=== PATIENT | male | born 1960 | race Caucasian/White ===

== ENCOUNTER → 2018-01-13 01:45 | Outpatient (CLI) | payer BC, SELFPAY ==
[2018-01-13 11:12] LABS: Hemoglobin A1C 5.2 % (4.5-6.2)
[2018-01-13 11:16] LABS: BUN 18 mg/dL (7-18); CREATININE 1.01 mg/dL (0.70-1.30); Calcium 8.6 mg/dL (8.5-10.1); Chloride 104 mmol/L (98-107); Glucose 78 mg/dL (70-100); Potassium 4.4 mmol/L (3.5-5.1); Sodium 139 mmol/L (136-145)
== END ==
PROVIDERS: PCP Family Medicine; Visit Provider Family Medicine
DX: Z00.00 Encounter for general adult medical examination without abnormal findings (principal); Z83.3 Family history of diabetes mellitus; N40.0 Benign prostatic hyperplasia without lower urinary tract symptoms; Z13.1 Encounter for screening for diabetes mellitus
CPT/HCPCS: 36415; 80048; 83036; 84154

== ENCOUNTER 2020-04-24 02:01 | Outpatient (CLI) | payer BC, SELFPAY ==
[2020-04-26 01:24] LABS: COVID-19 RT-PCR Result NEGATIVE (Negative)
== END 2020-04-24 02:21 ==
PROVIDERS: PCP Nurse Practitioner; Visit Provider Podiatrist
DX: Z11.59 Encounter for screening for other viral diseases (principal); Z01.818 Encounter for other preprocedural examination
CPT/HCPCS: U0003

== ENCOUNTER 2020-04-27 07:17 | Day surgery (SDC) | payer BC, SELFPAY ==
--- NOTE | 2020-04-27 07:20 | W.PM.HP.N ---
Date of service: 04/27/20 Time of Service: 07:20 History of Present Illness History of Present Illness Chief Complaint: Digiti quinti varus deformities bilaterally Narrative: 60-year-old male with chronic pain associated with fifth digit hammertoe deformities and soft corn formations. This is been a multiyear problem for him is reached the point he is having difficulty wearing shoe gear getting through his workday. In spite of nonoperative treatments pain persists and he is opting for surgical intervention. PFSH Medical History Back pain BPH (benign prostatic hyperplasia) [place] (hard of hearing) Otitis externa Inactive Otitis media Inactive Surgical History Colonoscopy - MAC (01/30/17) History of vasectomy Hx of colonoscopy Family History Mother Diabetes Stage 4 chronic kidney disease Father , 70 Essential hypertension Heart disease Sister No problems noted. Brother Essential hypertension Depression Paternal Grandfather No problems noted. Sister No problems noted. Brother Depression Son No problems noted. Son No problems noted. Daughter No problems noted. Son No problems noted. Social History Smoking/Tobacco Use Status: Never Smoking risk assessment performed?: Yes Alcohol Intake: current Alcohol Intake frequency: a few times a week Alcohol type: beer, wine and hard liquor Drug use: Never Substance use type: does not use Caregiver/Support person: No Household members: spouse and children Housing: house Communication Needs: Hard of Hearing Do you need help understanding health information?: Rarely Pets and animals: Yes Pets and animals: cat(s) and dog(s) Sexually active: Yes Do you think of yourself as: straight/heterosexual Current gender identity: male What is your relationship status?: How often do you talk on the phone with friends or family?: three or more times per week How often do you get together with friends or relatives?: three or more times per week How often do you attend christianity or samaritan services?: decline to answer Do you belong to any clubs or organized social groups?: yes Panel score (0-1 are the most socially isolated patients): 3 What type of physical activity do you participate in: walking Duration: > 90 minutes/day Frequency: 5-6 times per week Milka/Zoroastrianism: No preference Special milka needs: No Seatbelt use: always Helmet use: Yes Helmet use: sometimes Drive intox 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 Thanks today for this surgical repair digiti quinti varus deformities bilaterally. Head is normocephalic Eyes PERRLA Hearing is diminished but adequate Uvula was midline airway looks assessable Heart had regular rate and rhythm I detected no gallops rubs or murmurs Lung longo are clear Abdomen was soft bowel sounds x4 Peripheral pulses are manually palpable at the ankle 2/4 bilaterally. No peripheral edema. Capillary fill is under 3 seconds all toes. Muscle groups 5 out of 5 bilaterally Skeletal exam is remarkable for bilateral digiti quinti varus deformities with irritation seen dorsal laterally at the PIPJ as well as soft corn formations between the fourth and fifth digits. The corn formations are locally irritated without signs of infection. Neurologically he is grossly intact toes are downgoing no deficits noted Impressions: Digiti quinti varus deformities bilaterally with soft corn formations as above Plan: Jeanie is being brought to the OR for surgical repair of the above deformities. He understands risk and complications pertaining the surgery including pain, scarring, infection, shortening of the fifth toes with potential floating. He understands the potential for revisional procedures. All questions have been answered in detail. There are no promises made to final outcome of surgery. Informed consent has been obtained. COVID-19 Screening Have you, or household traveled for leisure in last 14 days?: No Had IN PERSON contact w/suspected or confirmed C-19 person: No
[2020-04-27 07:30] VITALS: BP 123/80; PULSE 62; RESP 16; TEMP 36.7; O2SAT 100
[2020-04-27] MEDS: Lactated Ringers 1,000 ML 80 ML IV (08:02)
[2020-04-27] MEDS: ceFAZolin 1 GM/50 ML BAG IVPB (09:32)
[2020-04-27] MEDS: Bupivacaine 0.5% Pres-Free 30 ML VIAL (09:42)
[2020-04-27] MEDS: Lidocaine 1% Multi-Dose 50 ML VIAL (09:42)
[2020-04-27] MEDS: Dexamethasone 4 MG/ML VIAL (10:08)
--- NOTE | 2020-04-27 10:19 | PDOC.DSDIS_ITS ---
Discharge Plan Disposition Patient Disposition: HOME Condition: Good Discharge Details Attending Provider: Jesus Garza Primary Care Provider: Christy Benjamin Home Meds and New Rx's Prescriptions: New hydrocodone-acetaminophen [[place]] 5-325 mg tablet 1 tab PO Q6H PRN (Reason: pain) Qty: 9 RF: 0 No Action atorvastatin 20 mg tablet 20 mg PO QPM Qty: 90 RF: 3 ofloxacin 0.3 % drops 2 drp ophthalmic (eye) QID Qty: 5 RF: 0 ibuprofen 200 mg Tablet 400 mg PO DAILY RF: 0 Discharge Instructions Activity:: Elevate Remove Dressings/Wound Care:: Do Not Remove Shower/Bathe:: Cover Diet:: Normal Diet Discharge Orders Discharge Orders: Discharge Order (Routine); Ordered 04/27/20 Ordered By: Jesus Garza DS: Diagnosis Discharge Diagnosis (1) Marybeth, bilateral: Status: Acute
--- NOTE | 2020-04-27 10:33 | ROE_ITS ---
Date of service: 04/27/20 Time of Service: 10:33 Operative Note Operative Note DATE OF PROCEDURE: 04/27/20 PRE-OP DIAGNOSIS: Hammertoe fifth digit bilaterally PROCEDURE: Arthroplasty fifth digit bilaterally SURGEON: Jesus Garza ANESTHESIA: MAC ESTIMATED BLOOD LOSS: 1 PATHOLOGY: none sent COMPLICATIONS: None Patient was transported to: same day Patient's condition: stable Procedure Description: Charlie was brought to the operative suite placed in the supine position with both feet were prepped and draped in the usual sterile podiatric fashion. Timeout was performed per protocol. Both fifth toes were anesthetized with a 50: 50 mixture 1% lidocaine plain, 0.5% Marcaine plain utilizing a total of 18 cc. Attention was directed to the right foot. Foot was exsanguinated ankle tourniquet inflated to 250 mmHg. Attention was directed to the fifth toe with 2 converging semielliptical incisions were placed scented dorsally over the fifth PIPJ. The skin wedge was excised. Soft tissue diss ection was performed. A transverse tenotomy capsulotomy was then performed at the PIPJ level. The tendon was reflected proximally and distally. The head of the fifth proximal phalanx was delivered into the wound. Hypertrophy and mild degenerative change of the articular surfaces noted. Double-action bone cutting forceps the proximal phalangeal head was resected slightly angulated so as to remove a little more bone medially. All rough and bony edges were rasped smooth. Copious irrigation was performed. Finger palpation led me to believe that there was sufficient bony resection and I decided not to remove any bone from the lateral side of the fourth MPJ. The extensor tendon was shortened dorsally and the tendon repaired end-to-end with 3-0 Vicryl. The skin was then coapted with simple interrupted suture of 4-0 nylon. 2 mg of dexamethasone phosphate was infused deeply into the toe Xeroform gauze fluff compression dressings were applied. Tourniquet was released to 12 minutes with vascularity returning immediately to all toes. Attention was now directed to the left foot where the identical procedure was performed with the only change being the tourniquet time was 14 minutes. Charlie left the OR with vital signs stable vascular status intact. Sharp and sponge counts were correct. He was transported to day surgery and I will follow him up in the office next week.
[2020-04-27 10:47] VITALS: BP 115/78; PULSE 54; RESP 16; TEMP 36.4; O2SAT 99
== END 2020-04-27 11:15 | disposition home or self-care (01) ==
PROVIDERS: PCP Nurse Practitioner; Visit Provider Podiatrist
PROC: (CPT 28285; principal; 2020-04-27 08:45)
DX: M20.41 Other hammer toe(s) (acquired), right foot (principal); M20.42 Other hammer toe(s) (acquired), left foot
CPT/HCPCS: 28285 ×2; 99223; J0690; J1100; J1885; J2001; J3010

== ENCOUNTER 2020-07-20 01:53 | Outpatient (CLI) | payer BC, SELFPAY ==
[2020-07-20 10:07] LABS: Calculated LDL 162 mg/dL (<100); Cholesterol 244 mg/dL (<200); HDL Cholesterol 68 mg/dL (40-60); Triglyceride 70 mg/dL (<150)
== END 2020-07-20 01:54 | disposition home or self-care (01) ==
LOC: LBO 01:53
PROVIDERS: PCP Nurse Practitioner; Visit Provider Nurse Practitioner
DX: E78.5 Hyperlipidemia, unspecified (principal)
CPT/HCPCS: 36415; 80061

== ENCOUNTER 2021-02-11 08:16 | Outpatient (CLI) | payer BC, SELFPAY ==
[2021-02-11 12:37] LABS: Hemoglobin A1C 5.3 % (<5.7)
[2021-02-11 12:45] LABS: Calculated LDL 79 mg/dL (<100); Cholesterol 153 mg/dL (<200); HDL Cholesterol 66 mg/dL (40-60); Triglyceride 43 mg/dL (<150)
== END 2021-02-11 08:17 | disposition home or self-care (01) ==
LOC: LOS 08:19
PROVIDERS: PCP Nurse Practitioner; Visit Provider Nurse Practitioner
DX: E78.5 Hyperlipidemia, unspecified (principal); Z13.1 Encounter for screening for diabetes mellitus
CPT/HCPCS: 36415; 80061; 83036

== ENCOUNTER 2022-05-22 12:34 | Outpatient (CLI) | payer BC, SELFPAY ==
[2022-05-22 12:42] LABS: ALT 31 U/L (16-63); AST 26 U/L (15-37); Albumin 3.6 g/dL (3.4-5.0); Alkaline Phosphatase 86 U/L (46-116); Anion Gap 7.6 mmol/L (3-11); BUN 29 mg/dL (7-18); Bilirubin, Total 0.6 mg/dL (0.2-1.0); CO2 29.4 mmol/L (21.0-32.0); Calcium 8.9 mg/dL (8.5-10.1); Chloride 103 mmol/L (98-107); Estimated GFR 84.05 (mL/min/1.73m2); Glucose 71 mg/dL (74-106); Potassium 3.9 mmol/L (3.5-5.1); Sodium 140 mmol/L (136-145)
[2022-05-23 08:07] LABS: PSA, Screening 0.7 ng/mL (<=4.5)
== END 2022-05-22 12:35 | disposition home or self-care (01) ==
LOC: LOS 12:36
PROVIDERS: PCP Nurse Practitioner Family; Visit Provider Nurse Practitioner Family
DX: N40.0 Benign prostatic hyperplasia without lower urinary tract symptoms (principal); E78.5 Hyperlipidemia, unspecified; Z12.5 Encounter for screening for malignant neoplasm of prostate
CPT/HCPCS: 36415; 80053; 84153

== ENCOUNTER 2022-08-22 01:16 | Outpatient (CLI) | payer BC, SELFPAY ==
--- NOTE | 2022-08-22 09:47 | DI.RAD_ITS ---
Exam(s) XR HUMERUS LT EXAM: XR HUMERUS LT CLINICAL HISTORY: LT UPPER ARM pain, lump at proximal bicep,M79.622. TECHNIQUE: 2D digital imaging was performed. COMPARISON: No exams were available for comparison FINDINGS: BONES: No acute fracture is present. No bony destructive lesion is seen. Visualized portion of elbow and shoulder joints are unremarkable. Mild degenerative changes at the glenoid. SOFT TISSUE: Normal. No mass or calcification visible. IMPRESSION: Unremarkable radiographs of the left humerus. DATA REPOSITORY: RADIATION DOSE DELIVERED:
== END 2022-08-22 01:36 ==
LOC: DI 01:16
PROVIDERS: PCP Nurse Practitioner Family; Visit Provider Nurse Practitioner Family
DX: M79.622 Pain in left upper arm (principal); R22.32 Localized swelling, mass and lump, left upper limb
CPT/HCPCS: 73060

== ENCOUNTER 2022-10-09 10:09 | Outpatient (CLI) | payer BC, SELFPAY ==
--- NOTE | 2022-10-09 08:30 | DI.RAD_ITS ---
Exam(s) XR LUMBAR SPINE COMPLETE EXAM: XR LUMBAR SPINE COMPLETE CLINICAL HISTORY: low back and hip pain, M54.50, M25.551, M25.552. TECHNIQUE: 2D digital imaging was performed of the lumbar spine. Five images were obtained. AP, la teral, right oblique, left oblique and L5-S1 spot views were obtained. COMPARISON: No exams were available for comparison FINDINGS: BONES: No fracture or destructive lesion. Small endplate osteophytes are seen at several levels of th e lumbar spine. Degenerative changes of the facets at L5-S1 is noted. DISKS: There is narrowing at T12-L1 and L1-L2. ALIGNMENT: There is 2-3 mm retrolisthesis of L1 on L2. No spondylolysis or spondylolisthesis. SOFT TISSUE: Atherosclerosis is present. IMPRESSION: Mild degenerative changes are seen in the lumbar spine as described above. DATA REPOSITORY: RADIATION DOSE DELIVERED:
--- NOTE | 2022-10-09 08:31 | DI.RAD_ITS ---
Exam(s) XR HIP PELVIS ADULT BL EXAM: XR HIP PELVIS ADULT BL CLINICAL HISTORY: bilateral hip pain, M25.551. TECHNIQUE: 2D digital imaging was performed of the pelvis and bilateral hips. Three images were obt ained. AP pelvis and lateral views of both hips were obtained. COMPARISON: No exams were available for comparison FINDINGS: BONES: No acute fracture is present. No bony destructive lesion is seen. JOINTS: No dislocation present. Marked degenerative changes are seen in the hips bilaterally characte rized by joint space narrowing and acetabular spurring. Subchondral sclerosis and subchondral cysts are also seen in the hips superiorly, right greater than left. SOFT TISSUE: Normal. IMPRESSION: Marked degenerative changes of the hips bilaterally. DATA REPOSITORY: RADIATION DOSE DELIVERED:
== END 2022-10-09 10:29 ==
LOC: DI 10:09
PROVIDERS: PCP Nurse Practitioner Family; Visit Provider Nurse Practitioner Family
DX: M17.0 Bilateral primary osteoarthritis of knee; M51.36 Other intervertebral disc degeneration, lumbar region
CPT/HCPCS: 73521; 72110

== ENCOUNTER 2023-04-13 22:01 | Outpatient (REF) | payer MEDICARE, BC, SELFPAY | END 2023-04-13 22:02 | disposition home or self-care (01) | LOC: NCHCN 22:01 | PROVIDERS: PCP Nurse Practitioner Family; Visit Provider Physician Assistant | DX: J02.9 Acute pharyngitis, unspecified (principal) | CPT/HCPCS: 87077; 87070 ==

== ENCOUNTER 2023-05-29 01:42 | Outpatient (CLI) | payer MEDICARE, BC, SELFPAY ==
[2023-05-29 12:13] LABS: Abs Immature Grans 0.02 10^3/uL (0.0-0.06); Absolute Basophil Count 0.02 10^3/uL (0.0-0.2); Absolute Lymphocyte Count 1.45 10^3/uL (1.2-3.4); Absolute Monocyte Count 0.45 10^3/uL (0.1-0.8); Absolute Neutrophil Count 2.82 10^3/uL (1.2-6.7); Basophils % 0.4; Eosinophils % 2.1; HCT 41.1 % (40.0-50.0); HGB 13.7 g/dL (13.5-17.5); Immature Grans % 0.4; Lymphocytes % 29.8; MCH 29.1 pg (27.0-33.0); MCHC 33.3 % (32.0-36.0); MCV 87 fL (80-95); MPV 9.1 fL (8.0-11.0); Monocytes % 9.3; Platelet Count 230 10^3/uL (130-400); RBC 4.71 10^6/uL (4.36-5.78); RDW 12.5 % (11.8-14.1); RDW-SD 40.3 fL; WBC 4.86 10^3/uL (4.4-10.8)
[2023-05-29 12:34] LABS: Anion Gap 9.4 mmol/L (3-11); BUN 17 mg/dL (7-18); CO2 26.6 mmol/L (21.0-32.0); Calcium 8.9 mg/dL (8.5-10.1); Calculated LDL 82 mg/dL (<100); Chloride 104 mmol/L (98-107); Cholesterol 160 mg/dL (<200); Estimated GFR 83.52 (mL/min/1.73m2); Glucose 94 mg/dL (74-106); HDL Cholesterol 67 mg/dL (40-60); Potassium 4.1 mmol/L (3.5-5.1); Sodium 140 mmol/L (136-145); TSH (W/Ref FT4) 1.99 uIU/mL (0.36-3.74); Triglyceride 57 mg/dL (<150)
[2023-05-29 19:09] LABS: PSA, Screening 0.6 ng/mL (<=4.5)
[2023-05-29 19:54] LABS: Hepatitis C Ab w Rflx HCV PCR Negative (Negative)
== END 2023-05-29 01:43 | disposition home or self-care (01) ==
LOC: LOS 01:43
PROVIDERS: PCP Nurse Practitioner Family; Visit Provider Nurse Practitioner Family
DX: Z00.00 Encounter for general adult medical examination without abnormal findings (principal); Z12.5 Encounter for screening for malignant neoplasm of prostate
CPT/HCPCS: 36415; 80048; 80061; 84153; 86803; 84443; 85025

== ENCOUNTER 2023-12-02 19:48 | Outpatient (REF) | payer BC, MEDICARE, SELFPAY | END 2023-12-02 19:49 | disposition home or self-care (01) | LOC: LBN 19:48 | PROVIDERS: PCP Nurse Practitioner Family; Visit Provider Nurse Practitioner Family | DX: L98.9 Disorder of the skin and subcutaneous tissue, unspecified (principal) | CPT/HCPCS: 87070; 87205 ==

== ENCOUNTER 2024-01-13 09:01 | Outpatient (CLI) | payer BC, MEDICARE, SELFPAY ==
[2024-01-13 12:41] LABS: Abs Immature Grans 0.02 10^3/uL (0.0-0.06); Absolute Basophil Count 0.01 10^3/uL (0.0-0.2); Absolute Eosinophil Count 0.07 10^3/uL (0.0-0.7); Absolute Lymphocyte Count 1.31 10^3/uL (1.2-3.4); Absolute Monocyte Count 0.46 10^3/uL (0.1-0.8); Absolute Neutrophil Count 4.36 10^3/uL (1.2-6.7); Basophils % 0.2 %; Eosinophils % 1.1 %; HCT 44.4 % (40.0-50.0); HGB 15.1 g/dL (13.5-17.5); Immature Grans % 0.3 %; MCH 30.3 pg (27.0-33.0); MCV 89 fL (80-95); MPV 9.2 fL (8.0-11.0); Monocytes % 7.4 %; Platelet Count 184 10^3/uL (130-400); RBC 4.99 10^6/uL (4.36-5.78); RDW 12.3 % (11.8-14.1); RDW-SD 39.8 fL; WBC 6.23 10^3/uL (4.4-10.8)
[2024-01-13 13:01] LABS: ALT 34 U/L (16-63); AST 24 U/L (15-37); Albumin 3.7 g/dL (3.4-5.0); Alkaline Phosphatase 84 U/L (46-116); Anion Gap 8.2 mmol/L (3-11); BUN 21 mg/dL (7-18); Bilirubin, Total 0.56 mg/dL (0.2-1.0); CO2 27.8 mmol/L (21.0-32.0); Chloride 105 mmol/L (98-107); Estimated GFR 83.52 (mL/min/1.73m2); Glucose 97 mg/dL (74-106); Hemoglobin A1C 5.3 % (<5.7); Sodium 141 mmol/L (136-145); TSH (W/Ref FT4) 1.91 uIU/mL (0.36-3.74); Total Protein 6.9 g/dL (6.4-8.2)
[2024-01-13 19:24] LABS: Hepatitis C Ab w Rflx HCV PCR Negative (Negative)
[2024-01-13 19:39] LABS: HBs Antibody, Quant 119.2 mIU/mL (See Note); Hep B Surface Ab Positive (See Note); Hepatitis B Core Antibody Negative (Negative); Hepatitis B Surface Antigen Negative (Negative)
[2024-01-13 19:42] LABS: HIV-1/2 Ag & Ab Screen Negative (Negative)
[2024-01-17 16:52] LABS: Testosterone, Total 405 ng/dL (240-950)
== END 2024-01-13 09:02 | disposition home or self-care (01) ==
LOC: LOS 09:01
PROVIDERS: PCP Nurse Practitioner Family; Referring Provider Nurse Practitioner Family; Visit Provider Nurse Practitioner Family
DX: R05.9 Cough, unspecified (principal); Z11.59 Encounter for screening for other viral diseases; E78.5 Hyperlipidemia, unspecified; R53.83 Other fatigue; R68.82 Decreased libido; Z11.4 Encounter for screening for human immunodeficiency virus [HIV]
CPT/HCPCS: 36415; 80053; 84403; 86704; 86706; 86803; 87340; 87389; 83036; 84443; 85025

== ENCOUNTER 2024-01-13 11:16 | Outpatient (CLI) | payer BC, MEDICARE, SELFPAY ==
--- NOTE | 2024-01-13 11:00 | DI.RAD_ITS ---
Exam(s) XR CHEST 2V PA LATERAL EXAM: XR CHEST 2V PA LATERAL CLINICAL HISTORY: cough,r05.9 TECHNIQUE: 2D digital imaging was performed. Two views. COMPARISON: CT NECK AND CHEST WITH CONTRAST from 10/08/2016 FINDINGS: HEART: Normal size. Aorta: Not dilated. PULMONARY VASCULATURE: Normal. MEDIASTINUM: Unremarkable. LUNGS: Clear. PLEURAL SPACE: No pleural effusion or pneumothorax. BONE:Unremarkable for age. SOFT TISSUES: Unremarkable. IMPRESSION: No acute abnormality. DATA REPOSITORY: RADIATION DOSE DELIVERED:
== END 2024-01-13 11:36 ==
LOC: DI 11:17
PROVIDERS: PCP Nurse Practitioner Family; Visit Provider Nurse Practitioner Family
DX: R05.9 Cough, unspecified (principal)
CPT/HCPCS: 71046

== ENCOUNTER 2024-11-23 02:49 | Outpatient (CLI) | payer MEDICARE, BC, SELFPAY ==
--- NOTE | 2024-11-23 10:51 | DI.RAD_ITS ---
Exam(s) XR LUMBAR SPINE COMPLETE XR SACROILIAC JOINTS EXAM: XR LUMBAR SPINE COMPLETE CLINICAL HISTORY: lower back pain, left,m54.50. TECHNIQUE: 2D digital imaging was performed. Five views the lumbar spine. Three views of the SI joints COMPARISON: CR XR LUMBAR SPINE COMPLETE from 10/09/2022 CR XR SACROILIAC JOINTS from 11/23/2024 FINDINGS: SI joints: No significant spurring. No bony erosions. BONES: No fracture or destructive lesion. Vertebral body heights are maintained. There are bilateral hip prostheses. There are facet degenerative changes at L4-5 and L5-S1. DISKS: Moderate narrowing of the L1-2 and L2-3 disc spaces eccentric toward the left, creating mild scoliosis. Findings appear to have worsened since the previous exam. The remaining intervertebral disc spaces are maintained. ALIGNMENT: Mild degenerative dextroscoliosis. SOFT TISSUE: Normal. IMPRESSION: Moderate degenerative disc changes at L 1 2 and L2-3. Facet degenerative changes greatest at L4-5. The SI joints appear normal. DATA REPOSITORY: RADIATION DOSE DELIVERED:
== END 2024-11-23 03:09 ==
LOC: DI 02:49
PROVIDERS: PCP Nurse Practitioner Family; Visit Provider Physician Assistant
DX: M51.360 Other intervertebral disc degeneration, lumbar region with discogenic back pain only (principal)
CPT/HCPCS: 72110; 72202

== ENCOUNTER 2025-01-03 16:12 | Outpatient (CLI) | payer MEDICARE, BC, SELFPAY ==
--- NOTE | 2025-01-03 12:56 | DI.RAD_ITS ---
Exam(s) XR HIP LT COMPLETE AP PELVIS EXAM: XR HIP LT COMPLETE AP PELVIS CLINICAL HISTORY: left hip pain S/P lt hip replacement M25.522 Z96.642. TECHNIQUE: 2D digital imaging was performed. Two views. COMPARISON: CR XR HIP PELVIS ADULT BL from 10/09/2022 FINDINGS: BONES: No acute fracture is present. No bony destructive lesion is seen. No abnormal lucencies surrounding the prostheses. JOINTS: No dislocation present. The SI joints and pubic symphysis are intact. Bilateral hip prostheses have been placed since the previous exam. The alignment appears satisfactory. SOFT TISSUE: Normal. IMPRESSION: Unremarkable bilateral hip prostheses. DATA REPOSITORY: RADIATION DOSE DELIVERED:
== END 2025-01-03 16:32 ==
LOC: DI 16:12
PROVIDERS: PCP Nurse Practitioner Family; Visit Provider Nurse Practitioner Family
DX: M25.552 Pain in left hip (principal); Z96.642 Presence of left artificial hip joint
CPT/HCPCS: 73502

== ENCOUNTER 2025-01-04 09:46 | Emergency (ER) | payer MEDICARE, BC, SELFPAY ==
[2025-01-04] VITALS (28 sets, daily range): BP systolic 136–158; BP diastolic 80–99; PULSE 53–79; RESP 11–20; TEMP 36.8; O2SAT 92–98
--- NOTE | 2025-01-04 09:45 | RT.EKG_ITS ---
APPROVED REPORT Exam: Resting ECG Reason for Exam: chest pain Patient Location: E HR:66 bpm ECG Measurements Heart Rate 66 AXIS MS 132 P 22 QRSd 90 QRS 5 QT 360 T 57 QTc 378 Conclusion Sinus rhythm...normal P axis, V-rate 60- 99
--- NOTE | 2025-01-04 10:02 | ED.GENADUL_ITS ---
Discharge Plan Disposition Patient Disposition: Home Condition: Stable Discharge Details Clinical Impression: Chest pain Primary Care Provider: Shanique Summers ED Provider: Nabil Shabazz Home Meds and New Rx's Prescriptions: Continued prednisone 20 mg tablet 10 - 60 mg PO DAILY Qty: 30 0RF Rx Instructions: Take 3 tablets for 5 days then 2 tablets for 4 days then 1 tablet for 3 days and half a tablet for 3 days tramadol 50 mg tablet 50 mg PO BID PRN (Reason: pain) Qty: 30 0RF atorvastatin 20 mg tablet 20 mg PO QPM Qty: 90 3RF tamsulosin [Flomax] 0.4 mg capsule 0.8 mg PO QHS Qty: 180 3RF Discharge Instructions Additional Instructions: Your heart enzymes and x-ray did not show concerning findings at this time. Your blood work was unremarkable other than your white blood cell count was elevated which can be due to the prednisone that you are on. Follow-up with your primary care provider. If you feel significantly more ill, have sustained fevers over 101 or severe worsening chest pain return to the emergency department for reevaluation. HPI General Mode of arrival: ambulatory . Date/Time Provider Initiated Documentation: 01/04/25 09:47 . Limitations to Documentation: no limitations . Information obtained by: patient . History of Present Illness 64 year old M presents to the emergency department with the chief complaint of chest pain, described as moderate, Quality is described as stabbing, Patient started experiencing this hour(s) (1) and it has been now resolved. No relieving factors improve symptom(s), No exacerbating factors reported . Patient notes no other symptoms.. Patient did receive the following treatments prior to arrival, none Related Data Home Medications ?Medication ?Instructions ?Recorded ?Confirmed atorvastatin 20 mg tablet 20 mg PO QPM #90 tabs 01/04/25 tamsulosin 0.4 mg capsule (Flomax) 0.8 mg (2 x 0.4 mg) PO QHS #180 08/15/24 01/04/25 caps prednisone 20 mg tablet 10 - 60 mg (0.5 - 3 x 20 mg) PO 12/30/24 01/04/25 DAILY #30 tabs tramadol 50 mg tablet 50 mg PO BID PRN pain #30 ta bs 12/30/24 01/04/25 Previous Rx's ?Medication ?Instructions ?Recorded atorvastatin 20 mg tablet 20 mg PO QPM #90 tabs tamsulosin 0.4 mg capsule (Flomax) 0.8 mg (2 x 0.4 mg) PO QHS #180 08/15/24 caps prednisone 20 mg tablet 10 - 60 mg (0.5 - 3 x 20 mg) PO 12/30/24 DAILY #30 tabs tramadol 50 mg tablet 50 mg PO BID PRN pain #30 ta bs 12/30/24 Allergies Allergy/AdvReac Type Severity Reaction Status Date / Time No Known Allergies Allergy Verified 01/04/25 10:04 Review of Systems All systems reviewed & are unremarkable except as noted in HPI and below Constitutional Constitutional: Denies chills, Denies fever(s) and Denies weakness Cardiovascular Cardiovascular: Reports chest pain and Denies dyspnea Respiratory Respiratory: Denies cough and Denies dyspnea Gastrointestinal Gastrointestinal: Denies abdominal pain, Denies nausea and Denies vomiting Neurologic Neurologic: Denies weakness Exam Const General: no acute distress Orientation: alert HENMT Head: normal to inspection Ears: external ears normal General nose exam: external nose normal Mouth: moist mucous membranes Eyes General: appearance normal, both eyes and all related structures Neck Neck: normal visual inspection Chest Chest: normal inspection of the chest Resp Effort & Inspection: normal respiratory effort and able to speak in complete sentences Auscultation: clear to auscultation bilaterally Cardio Jugular venous pressure: no JVD Rate: regular rate Heart Sounds: no murmurs GI Palpation: soft and nontender Skin General skin exam: no rashes or lesions noted Neuro General: patient alert and patient oriented x3 Extrem General: normal to inspection Psych Mental Status: mental status grossly normal Medical Decision Making 64-year-old male patient with having issues with lower back pain for a month and states he 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 He denies any diaphoresis, nausea vomiting, abdominal pain. No fevers or chills. He is well-appearing speaking full sentences. He has no rashes of the chest wall. He has clear lung sounds, no JVD, no abdominal tenderness, no leg swelling or calf tenderness. He has no tachycardia or hypoxia. I suspect this could be related to anxiety or chest wall pain but will obtain CBC, CMP and troponins and also obtain a D-dimer more for evaluation for possible dissection rather than PE as he has no evidence of DVT on exam and no hypoxia or tachycardia. Labs show a white count of 17 but he has also been on prednisone which is likely the cause for this leukocytosis. No fevers. Troponins negative and a chest x- ray is negative and D-dimer is less than 500. He is resting in no distress on reassessment. Given reassuring workup I feel he is stable for discharge and can follow-up with his PCP, return precautions given Differential Diagnosis Differential Diagnosis: Anxiety, chest wall pain, pleurisy, NSTEMI Lab Data Lab results reviewed: Yes I reviewed the patient's lab results. ECG Data Attestation: I personally reviewed and interpreted this ECG (s) as follows: Prior ECG tracings: not available for review Interpretation: Sinus rhythm, rate of 66, WA 132, no STEMI Quality:SDOH Health Related Social Needs: Health related social needs risk of homeless PFSH All Active Problems (Updated 01/04/25 @ 12:30 by Nabil Shabazz MD) Chest pain (Acute) Impacted cerumen, bilateral (Acute) Chronic low back pain (Chronic) Hyperlipidemia (Chronic) Sensorineural hearing loss, bilateral (Chronic) Has hearing aids Benign prostatic hyperplasia with lower urinary tract symptoms (Chronic) Surgical History Status post left hip replacement (01/06/23) Status post right hip replacement (03/31/23) S/P foot surgery (04/27/20) Arthroplasty fifth digit bilaterally Hx of colonoscopy History of vasectomy Family History Mother , 99 Diabetes Stage 4 chronic kidney disease Father , 70 Heart disease Hyperlipidemia Hypertension Sister Chronic lymphocytic leukemia Sister No problems noted. Brother Depression Brother Chronic lymphocytic leukemia Son No problems noted. Son No problems noted. Daughter No problems noted. Maternal Grandfather No problems noted. Maternal Grandmother No problems noted. Paternal Grandfather No problems noted. Paternal Grandmother No problems noted. Social History Smoking/Tobacco Use Status: Never Second Hand Exposure: Yes Smoking risk assessment performed?: Yes Alcohol Intake: current Alcohol Intake frequency: holidays/special occasions only Alcohol type: beer and hard liquor Drug use: Occasionally Substance use type: does not use Caregiver/Support person: No Household members: spouse Housing: house Communication Needs: Hard of Hearing and Corrective Lenses Do you need help understanding health information?: Rarely Pets and animals: Yes Pets and animals: cat(s) and farm animals Sexually active: Yes Do you think of yourself as: straight/heterosexual Current gender identity: male What is your relationship status?: How often do you talk on the phone with friends or family?: three or more times per week How often do you get together with friends or relatives?: three or more times per week How often do you attend buddhist or amish services?: decline to answer Do you belong to any clubs or organized social groups?: no Panel score (0-1 are the most socially isolated patients): 2 What type of physical activity do you participate in: walking Duration: 45-60 minutes/day Frequency: daily Milka/Zoroastrianism: No preference Special milka needs: No Seatbelt use: always Helmet use: Yes Helmet use: sometimes Drive intox 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
[2025-01-04 10:31] LABS: Abs Immature Grans 0.34 10^3/uL (0.0-0.06); HCT 42.7 % (40.0-50.0); HGB 14.6 g/dL (13.5-17.5); Immature Grans % 2.0 %; MCH 30.0 pg (27.0-33.0); MCHC 34.2 % (32.0-36.0); MCV 88 fL (80-95); MPV 8.6 fL (8.0-11.0); Platelet Count 185 10^3/uL (130-400); RBC 4.86 10^6/uL (4.36-5.78); RDW 12.4 % (11.8-14.1); RDW-SD 40.0 fL; WBC 17.28 10^3/uL (4.4-10.8)
[2025-01-04 10:58] LABS: D-Dimer 194 ng/mlFEU (<500)
--- NOTE | 2025-01-04 11:00 | DI.RAD_ITS ---
Exam(s) XR CHEST 2V PA LATERAL EXAM: XR CHEST 2V PA LATERAL CLINICAL HISTORY: chest pain TECHNIQUE: 2D digital imaging was performed of the chest. Two images were obtained. PA and lateral views were obtained. COMPARISON: CR XR CHEST 2V PA LATERAL from 01/13/2024 FINDINGS: MEDIASTINUM: Normal. HEART: Normal. PULMONARY VASCULATURE: Normal. LUNGS: Clear. PLEURAL SPACE: No pleural effusion or pneumothorax. BONE:Within normal limits for the patient's age. OTHER FINDINGS:Normal. IMPRESSION: No acute pulmonary findings. DATA REPOSITORY: RADIATION DOSE DELIVERED:
[2025-01-04 11:13] LABS: ALT 46 U/L (16-63); AST 20 U/L (15-37); Albumin 3.3 g/dL (3.4-5.0); Alkaline Phosphatase 77 U/L (46-116); Anion Gap 6.5 mmol/L (3-11); BUN 30 mg/dL (7-18); Bilirubin, Total 0.6 mg/dL (0.2-1.0); CO2 27.5 mmol/L (21.0-32.0); Calcium 8.5 mg/dL (8.5-10.1); Chloride 100 mmol/L (98-107); Estimated GFR 83.01 (mL/min/1.73m2); Glucose 146 mg/dL (74-106); Lipase 42 U/L (<78); Magnesium 2.0 mg/dL (1.8-2.4); Potassium 4.1 mmol/L (3.5-5.1); Sodium 134 mmol/L (136-145); Total Protein 6.4 g/dL (6.4-8.2); Troponin I 5 ng/L (<or=76)
[2025-01-04 12:06] LABS: Troponin I 6 ng/L (<or=76)
== END 2025-01-04 12:53 | disposition home or self-care (01) ==
PROVIDERS: Emergency Provider Emergency Medicine; PCP Nurse Practitioner Family
DX: R07.9 Chest pain, unspecified (principal)
CPT/HCPCS: 99284; 99283; 36415; 80053; 83690; 93005; 71046; 83735; 84484; 85025; 85379; 93010

== ENCOUNTER 2025-01-10 01:07 | Outpatient (CLI) | payer MEDICARE, BC, SELFPAY ==
--- NOTE | 2025-01-10 06:15 | DI.MRI_ITS ---
Exam(s) MR LUMBAR SPINE WO EXAM: MR LUMBAR SPINE WO CLINICAL HISTORY: lumbar radiculopathy,acute,m54.16. TECHNIQUE: Multiplanar multisequence MRI of the Lumbar spine was performed. COMPARISON: CR XR LUMBAR SPINE COMPLETE from 11/23/2024 FINDINGS: Conus medullaris is at normal level. There is no evidence of conus mass nor subjacent clumping of intrathecal nerve roots to suggest arachnoiditis. The distal thecal sac appears unremarkable.There is no evidence of Tarlov intrasacral cysts nor other significant findings within the sacral canal Bones:There are no fractures nor ominous osseous lesions in the lumbar vertebral bodies and visualized sacrum. Benign intraosseous hemangioma is noted in the L2 vertebral body. This patient has bilateral hip prostheses, as evident on prior radiographs. With respect to the individual levels... T12-L1: Tiny focus of increased signal in the posterior annulus but no disc herniation nor central canal stenosis nor foraminal stenosis at this level. L1-2: There is moderate disc space narrowing at this level and anterior osseous lipping. Posteriorly there is retrolisthesis of L1 relative to L2. There is broad relatively symmetrical annular bulging which flattens the anterior thecal sac but there is no distinct focal disc herniation. Central canal dimensions are lower normal. No significant facet arthropathy. No significant foraminal stenosis evident. L2-3: Moderate decreased disc height. Posteriorly there is mild annular bulging, slightly more prominent posterolateral left. No prominent disc herniation. Central canal dimensions are lower normal. Minimal facet joint degenerative changes. Mild foraminal stenosis on the left side. No foraminal s tenosis on the right side. L3-4: Mild disc space narrowing. Posteriorly there is annular bulging and there is a significant posterolateral left disc protrusion which also exhibits a sequestered disc fragment extending caudally behind the left side of the L4 vertebral body for a distance of 1.3 cm. This disc protrusion fragment behind the left side of L4 vertebral body is approximately 1.0 cm wide by 0.7 cm AP. There is no foraminal stenosis on the right side. Minimal foraminal stenosis on the left side L4-5: Relatively preserved disc height and signal. Posteriorly there is a focus of signal abnormality in the posterior annulus and there is a shallow central subligamentous disc protrusion at this level which slightly indents the anterior thecal sac. Does not occupy the lateral recesses. Central canal dimensions are lower normal. Disc protrusion does not extend into the exiting neural foramina and there is no significant foraminal stenosis on either side at this level. Facet joints at this level a relatively unremarkable. L5-S1: Preserved disc height and signal. No disc herniation or central canal stenosis evident at this level. There is no foraminal stenosis at this level. There are significant degenerative changes in the right facet joint at this level; less so in the left facet joint. Soft tissues: paraspinal soft tissues appear unremarkable. IMPRESSION: 1. Multilevel findings as described individually above. 2. Most significant finding appears to be at L3-4 level where there is a left of center disc herniation which measures approximately 1 cm wide by 0.7 cm AP and which extends for a distance of 1.3 cm behind the left side of the L4 vertebral body. This appears somewhat sequestered from the parent disc at this level. 3. There is a shallow central subligamentous disc protrusion evident at L4-5 level also noted. The sequestered disc fragment described above behind the left side of the L4 vertebral body has most probably originated from the L3-4 disc space and not the L4-5 disc space. Other findings as above. DATA REPOSITORY:
== END 2025-01-10 01:27 ==
LOC: DI 01:07
PROVIDERS: PCP Nurse Practitioner Family; Visit Provider Nurse Practitioner Family
DX: M54.16 Radiculopathy, lumbar region (principal); M51.26 Other intervertebral disc displacement, lumbar region
CPT/HCPCS: 72148

== ENCOUNTER → 2025-04-26 01:16 | Outpatient (CLI) | payer MEDICARE, BC, SELFPAY ==
--- NOTE | 2025-04-26 | DI.MRI_ITS ---
Exam(s) MR LUMBAR SPINE WO EXAM: MR LUMBAR SPINE WO CLINICAL HISTORY: HERNIATED NUCLEUS PULPOSUS, M51.26, LT LUMBAR RADICULOPATHY, S/P LESI. TECHNIQUE: Multiplanar multisequence MRI of the Lumbar spine was performed. COMPARISON: CR XR LUMBAR SPINE COMPLETE from 11/23/2024 MR MR LUMBAR SPINE WO from 01/10/2025 FINDINGS: Bones: The last intervertebral disc space is designated the L5/S1 level for the numbering purpose of this examination. The vertebral body heights are well maintained. There is 3 mm retrolisthesis of L1 on L2. There is a hemangioma seen in the L2 vertebral body. Cord: It is of normal size and signal intensity. T12-L1: No disc herniations or bulges are present. No central spinal canal or neural foraminal stenosis. L1-2: There is a mild diffuse disc bulge. No central spinal canal or neural foraminal stenosis. L2-3: There is a diffuse disc bulge with extension into the left neural foramen. There is left lateral recess stenosis compressing the left L3 nerve root. There are degenerative changes of the facets. There is no significant central spinal canal or right neural foraminal stenosis. There is mild narrowing of the left neural foramina. L3-4: There is a left paracentral disc herniation with extrusion posterior to the L4 vertebral body. It causes left lateral recess stenosis compressing the left L4 nerve root. There are degenerative changes of the facets and mild hypertrophy of the ligamentum flavum, left greater than right. There is resultant mild narrowing of the central spinal canal. There is moderately severe left neural foraminal stenosis and mild right neural foraminal stenosis. L4-5: There is a mild diffuse disc bulge. There are degenerative changes of the facets. There is no significant central spinal canal stenosis. No central spinal canal or neural foraminal stenosis. L5-S1: No disc herniations or bulges are present. There are degenerative changes of the facets seen.There is no significant central spinal canal or neural foraminal stenosis. Soft tissues: The visualized SI joints and sacrum are well maintained. The paraspinal soft tissues are unremarkable. IMPRESSION: 1. Left paracentral L3-L4 disc herniation with extrusion posterior to the L4 vertebral body. It causes left lateral recess stenosis compressing the left L4 nerve root. 2. Multilevel degenerative changes in the lumbar spine causing central spinal canal and neural foraminal stenosis as described above. 3. At L2-3 there is a diffuse disc bulge which extends into the left neural foramen causing mild left neural foraminal stenosis. There is also left lateral recess stenosis with compression of the left L3 nerve root. DATA REPOSITORY:
== END ==
LOC: DI 01:16
PROVIDERS: PCP Nurse Practitioner Family; Visit Provider Nurse Practitioner
DX: M51.26 Other intervertebral disc displacement, lumbar region (principal); M54.16 Radiculopathy, lumbar region
CPT/HCPCS: 72148